=== PATIENT | female | born 1995 | race Caucasian/White ===

== ENCOUNTER 2022-05-27 17:04 | Emergency (ER) | payer OTHER ==
[2022-05-27] MEDS ORDERED: traMADol 50 MG Tab PO ONE (17:05)
[2022-05-27] MEDS ORDERED: Sodium Chloride 0.9% 10 ML Syringe FLUSH PRN (17:23)
[2022-05-27 17:44] LABS: ESTIMATED GFR 103 mL/min (>60)
[2022-05-27] MEDS ORDERED: Ondansetron 4 MG/2 ML SDV IVPUSH ONE (17:52)
[2022-05-27] MEDS ORDERED: Sodium Chloride 0.9% 1,000 ML IV SCH (18:00)
[2022-05-27] MEDS: Morphine 4 MG/ML VIAL IVPUSH ONE ×2 (18:38→19:15)
[2022-05-27] MEDS ORDERED: Iopamidol 755 Mg/ML 100 ML Bottle IV ONE (19:19)
== END 2022-05-27 19:55 | disposition home or self-care (01) ==
LOC: FB.ED 17:04
DX: K80.20 Calculus of gallbladder without cholecystitis without obstruction (principal)
CPT/HCPCS: 36415; 74177; 80053; 81001; 81025; 82150; 83690; 85025; 96361; 96374; 96375; 99283; 99284-25; A9270-GY; J2270; J2405; J7030; Q9967